=== PATIENT | female | born 2000 | race Caucasian/White ===

== ENCOUNTER 2020-11-02 14:14 | Observation (INO) ==
[2020-11-02] MEDS ORDERED: Metoclopramide 10 MG/2 ML VIAL IVP ONE (14:50)
[2020-11-02] MEDS: 0.9 % Sodium Chloride 1,000 ML IVC SCH ×2 (14:58→21:35)
[2020-11-02] MEDS ORDERED: Ondansetron 4 MG/2 ML VIAL IVP ONE ×2 (15:42→19:56)
[2020-11-02] MEDS ORDERED: Naloxone 0.4 MG/ML INJ IVP PRN (16:41)
[2020-11-02] MEDS ORDERED: Acetaminophen 325 MG TABLET PO PRN (16:41)
[2020-11-02 17:07] LABS: Bilirubin,Urine Negative (Negative); Blood,Urine Negative (Negative); Clarity,Urine Slightly Cloudy (Clear); Color,Urine Yellow (Yellow); Glucose,Urine (UA) Normal (Normal); Ketones,Urine >=160 mg/dL (Negative); Leukocyte Esterase,Urine Negative (Negative); Nitrite,Urine Negative (Negative); PH,Urine >=9.0 pH Units (5.0-8.0); Protein,Urine 30 mg/dL (Neg-Trace); Urobilinogen,Urine Normal (Normal)
[2020-11-02 17:15] LABS: Bacteria,Urine Many per hpf (None-Few); Squamous Epithelial Cell,Urine Few per hpf (None-Few)
[2020-11-02 17:16] LABS: WBC,Urine 0-3 per hpf (0-3)
[2020-11-02] MEDS ORDERED: Famotidine 20 MG/2 ML VIAL IVP ONE (19:55)
[2020-11-02] MEDS ORDERED: Mag Hydrox/Al Hydrox/Simeth 30 ML UDC PO ONE (19:57)
[2020-11-02] MEDS ORDERED: 0.9 % Sodium Chloride 250 ML IV ONE (19:59)
[2020-11-02] MEDS ORDERED: Pantoprazole 40 MG VIAL IVP ONE (20:46)
[2020-11-02 21:06] LABS: Basophils % 0.1 %; Hematocrit 30.7 % (35.3-44.9); Hemoglobin 10.3 g/dL (11.5-15.4); Immature Granulocytes % 0.5 % (0-4); Lymphocytes # 1.3 K/mcL (0.6-4.6); Lymphocytes % 8.1 %; Mean Corpuscular HGB Conc 33.6 g/dL (31.6-35.5); Mean Corpuscular Volume 86.5 fL (83.0-100.0); Mean Platelet Volume 10.2 fL (9.4-12.4); Monocytes # 0.6 K/mcL (0.0-1.3); Monocytes % 4.1 %; Neutrophils # 13.4 K/mcL (1.6-8.9); Platelet Count 221 K/mcL (140-400); Red Blood Count 3.55 M/mcL (3.82-4.97); Red Cell Distribution Width 14.1 % (11.5-14.5); Segmented Neutrophils % 87.2 %; White Blood Count 15.4 K/mcL (4.3-11.1)
[2020-11-02 21:23] LABS: Alanine Aminotransferase 37 Units/L (7-52); Albumin 4.1 g/dL (3.5-5.7); Albumin/Globulin Ratio 1.5 (1.1-2.2); Alkaline Phosphatase 64 Units/L (34-104); Aspartate Amino Transferase 28 Units/L (13-39); BUN/Creatinine Ratio 14 (6-26); Bilirubin,Total 0.5 mg/dL (0.3-1.0); Blood Urea Nitrogen 7 mg/dL (6-20); Calcium 8.8 mg/dL (8.6-10.3); Carbon Dioxide 20 mEq/L (23-29); Chloride 103 mEq/L (98-107); Globulin 2.8 g/dL (2.4-3.5); Glucose 123 mg/dL (70-105); Osmolality,Calculated 277 (280-300); Potassium 3.4 mEq/L (3.5-5.1); Sodium 134 mEq/L (136-145); Total Protein 6.9 g/dL (6.4-8.9); eGFR For African Americans > 60 (> 60); eGFR For Non-African Americans > 60 (> 60)
[2020-11-02] MEDS ORDERED: *HR* Promethazine 25 MG/ML VIAL IM PRN (21:55)
[2020-11-02] MEDS: 0.9 % Sodium Chloride w KCl 20 MEQ/1,000 ML MLS IVC SCH (22:13)
[2020-11-03] MEDS: Metoclopramide 10 MG/2 ML VIAL IVP PRN (00:03)
[2020-11-03] MEDS ORDERED: *HR* Promethazine 25 MG/ML VIAL IVPB PRN (00:58)
[2020-11-03] MEDS: 0.9 % Sodium Chloride w KCl 20 MEQ/1,000 ML MLS IVC SCH (04:32)
[2020-11-03 06:04] LABS: Hematocrit 30.5 % (35.3-44.9); Hemoglobin 9.9 g/dL (11.5-15.4); Mean Corpuscular HGB Conc 32.5 g/dL (31.6-35.5); Mean Corpuscular Hemoglobin 28.9 pg (28.0-33.3); Mean Corpuscular Volume 88.9 fL (83.0-100.0); Mean Platelet Volume 10.6 fL (9.4-12.4); Platelet Count 215 K/mcL (140-400); Red Blood Count 3.43 M/mcL (3.82-4.97); Red Cell Distribution Width 14.5 % (11.5-14.5); White Blood Count 15.7 K/mcL (4.3-11.1)
[2020-11-03 06:30] LABS: Alanine Aminotransferase 34 Units/L (7-52); Albumin 3.7 g/dL (3.5-5.7); Albumin/Globulin Ratio 1.5 (1.1-2.2); Alkaline Phosphatase 59 Units/L (34-104); Aspartate Amino Transferase 27 Units/L (13-39); BUN/Creatinine Ratio 9 (6-26); Bilirubin,Total 0.5 mg/dL (0.3-1.0); Blood Urea Nitrogen 5 mg/dL (6-20); Calcium 8.4 mg/dL (8.6-10.3); Carbon Dioxide 22 mEq/L (23-29); Chloride 107 mEq/L (98-107); Globulin 2.5 g/dL (2.4-3.5); Glucose 86 mg/dL (70-105); Magnesium 1.9 mg/dL (1.6-2.6); Osmolality,Calculated 279 (280-300); Phosphorous 3.5 mg/dL (2.7-4.5); Potassium 3.3 mEq/L (3.5-5.1); Sodium 136 mEq/L (136-145); Total Protein 6.2 g/dL (6.4-8.9); eGFR For African Americans > 60 (> 60); eGFR For Non-African Americans > 60 (> 60)
[2020-11-03 09:58] LABS: BUN/Creatinine Ratio 8 (6-26); Blood Urea Nitrogen 5 mg/dL (6-20); Calcium 8.8 mg/dL (8.6-10.3); Carbon Dioxide 22 mEq/L (23-29); Chloride 104 mEq/L (98-107); Glucose 89 mg/dL (70-105); Osmolality,Calculated 273 (280-300); Sodium 133 mEq/L (136-145); eGFR For African Americans > 60 (> 60); eGFR For Non-African Americans > 60 (> 60)
[2020-11-03] MEDS: FLUoxetine 20 MG CAPSULE PO SCH (12:10)
[2020-11-03] MEDS: 0.9 % Sodium Chloride 1,000 ML IVC SCH ×2 (14:33→15:48)
[2020-11-03] MEDS: Ondansetron 4 MG/2 ML VIAL IVP PRN (16:10)
[2020-11-03] MEDS: Potassium Chloride 40 MEQ in D5% in 0.9% NACL 1,000 ML IVC SCH ×2 (17:52→20:30)
[2020-11-03 18:56] LABS: Basophils # 0.1 K/mcL (0.0-0.2); Basophils % 0.4 %; Eosinophils % 0.1 %; Hematocrit 33.6 % (35.3-44.9); Immature Granulocytes % 0.5 % (0-4); Lymphocytes # 2.6 K/mcL (0.6-4.6); Lymphocytes % 18.5 %; Mean Corpuscular HGB Conc 32.7 g/dL (31.6-35.5); Mean Corpuscular Hemoglobin 29.2 pg (28.0-33.3); Mean Corpuscular Volume 89.1 fL (83.0-100.0); Monocytes # 0.8 K/mcL (0.0-1.3); Monocytes % 5.7 %; Neutrophils # 10.5 K/mcL (1.6-8.9); Platelet Count 236 K/mcL (140-400); Red Blood Count 3.77 M/mcL (3.82-4.97); Red Cell Distribution Width 14.6 % (11.5-14.5); Segmented Neutrophils % 74.8 %
[2020-11-03 19:12] LABS: BUN/Creatinine Ratio 7 (6-26); Blood Urea Nitrogen 4 mg/dL (6-20); Calcium 9.1 mg/dL (8.6-10.3); Carbon Dioxide 22 mEq/L (23-29); Chloride 104 mEq/L (98-107); Glucose 102 mg/dL (70-105); Osmolality,Calculated 277 (280-300); Potassium 3.5 mEq/L (3.5-5.1); Sodium 135 mEq/L (136-145); eGFR For African Americans > 60 (> 60); eGFR For Non-African Americans > 60 (> 60)
[2020-11-04 06:10] LABS: Basophils % 0.3 %; Eosinophils % 0.3 %; Hematocrit 31.1 % (35.3-44.9); Hemoglobin 9.9 g/dL (11.5-15.4); Immature Granulocytes % 0.4 % (0-4); Lymphocytes # 3.2 K/mcL (0.6-4.6); Lymphocytes % 32.1 %; Mean Corpuscular HGB Conc 31.8 g/dL (31.6-35.5); Mean Corpuscular Hemoglobin 28.8 pg (28.0-33.3); Mean Corpuscular Volume 90.4 fL (83.0-100.0); Mean Platelet Volume 10.4 fL (9.4-12.4); Monocytes # 0.8 K/mcL (0.0-1.3); Monocytes % 8.1 %; Neutrophils # 5.9 K/mcL (1.6-8.9); Platelet Count 199 K/mcL (140-400); Red Blood Count 3.44 M/mcL (3.82-4.97); Red Cell Distribution Width 14.6 % (11.5-14.5); Segmented Neutrophils % 58.8 %
[2020-11-04 06:25] LABS: Calcium 8.5 mg/dL (8.6-10.3); Carbon Dioxide 24 mEq/L (23-29); Chloride 106 mEq/L (98-107); Glucose 84 mg/dL (70-105); Potassium 3.4 mEq/L (3.5-5.1); Sodium 135 mEq/L (136-145); eGFR For African Americans > 60 (> 60); eGFR For Non-African Americans > 60 (> 60)
[2020-11-04 06:26] LABS: BUN/Creatinine Ratio 9 (6-26); Blood Urea Nitrogen 5 mg/dL (6-20); Osmolality,Calculated 276 (280-300)
[2020-11-04] MEDS: Ondansetron 4 MG/2 ML VIAL IVP PRN ×2 (07:10→15:14)
[2020-11-04] MEDS: Metoclopramide 10 MG/2 ML VIAL IVP PRN (09:15)
[2020-11-04 09:16] LABS: Bilirubin,Urine Negative (Negative); Blood,Urine Negative (Negative); Clarity,Urine Clear (Clear); Color,Urine Yellow (Yellow); Glucose,Urine (UA) Normal (Normal); Ketones,Urine Negative (Negative); Leukocyte Esterase,Urine Negative (Negative); Nitrite,Urine Negative (Negative); Protein,Urine Negative (Neg-Trace); Specific Gravity,Urine 1.025 (1.010-1.025); Urobilinogen,Urine Normal (Normal)
[2020-11-04] MEDS: Potassium Chloride 40 MEQ in D5% in 0.9% NACL 1,000 ML IVC SCH ×2 (09:16→13:11)
[2020-11-04] MEDS: FLUoxetine 20 MG CAPSULE PO SCH (09:17)
[2020-11-04] MEDS: 0.9 % Sodium Chloride 1,000 ML IVC SCH ×2 (09:22→11:50)
[2020-11-04 09:46] LABS: Amphetamine Screen,Urine Negative ng/mL (Cutoff=1000); Barbiturate Screen,Urine Negative ng/mL (Cutoff=200); Benzodiazepines Screen,Urine Negative ng/mL (Cutoff=200); Cannabinoid Screen,Urine Positive ng/mL (Cutoff = 50); Cocaine Screen,Urine Negative ng/mL (Cutoff= 300); Opiate Screen,Urine Negative ng/mL (Cutoff=300); Phencyclidine Screen,Urine Negative ng/mL (Cutoff=25)
[2020-11-04] MEDS ORDERED: *HR* Promethazine 25 MG/ML VIAL IM PRN (11:45)
[2020-11-04] MEDS ORDERED: Metoclopramide 10 MG/10 ML UD.LIQ PO SCH (21:00)
[2020-11-05] MEDS: Potassium Chloride 40 MEQ in D5% in 0.9% NACL 1,000 ML IVC SCH ×2 (04:05→12:47)
[2020-11-05 05:57] LABS: Basophils % 0.3 %; Eosinophils % 0.3 %; Hematocrit 30.9 % (35.3-44.9); Hemoglobin 10.1 g/dL (11.5-15.4); Immature Granulocytes % 0.6 % (0-4); Lymphocytes # 3.4 K/mcL (0.6-4.6); Mean Corpuscular HGB Conc 32.7 g/dL (31.6-35.5); Mean Corpuscular Hemoglobin 29.3 pg (28.0-33.3); Mean Corpuscular Volume 89.6 fL (83.0-100.0); Mean Platelet Volume 10.2 fL (9.4-12.4); Monocytes # 0.7 K/mcL (0.0-1.3); Monocytes % 6.2 %; Neutrophils # 7.4 K/mcL (1.6-8.9); Platelet Count 198 K/mcL (140-400); Red Blood Count 3.45 M/mcL (3.82-4.97); Red Cell Distribution Width 14.5 % (11.5-14.5); Segmented Neutrophils % 63.6 %; White Blood Count 11.6 K/mcL (4.3-11.1)
[2020-11-05 06:10] LABS: BUN/Creatinine Ratio 6 (6-26); Blood Urea Nitrogen 3 mg/dL (6-20); Calcium 8.6 mg/dL (8.6-10.3); Carbon Dioxide 24 mEq/L (23-29); Chloride 108 mEq/L (98-107); Glucose 88 mg/dL (70-105); Osmolality,Calculated 282 (280-300); Potassium 3.6 mEq/L (3.5-5.1); Sodium 138 mEq/L (136-145); eGFR For African Americans > 60 (> 60); eGFR For Non-African Americans > 60 (> 60)
[2020-11-05] MEDS: FLUoxetine 20 MG CAPSULE PO SCH (08:15)
[2020-11-05] MEDS: Ondansetron 4 MG/2 ML VIAL IVP PRN (10:36)
[2020-11-05] MEDS ORDERED: Metoclopramide 10 MG/10 ML UD.LIQ PO SCH (12:00)
[2020-11-05 12:02] VITALS: BP 145/88
== END 2020-11-05 15:45 | disposition home or self-care (01) ==
LOC: EMEROOGRE 14:14 → INPGRE 14:14
PROVIDERS: ADMIT Family Medicine; ATTEND Family Medicine